=== PATIENT | female | born 1965 | race African-American/Black ===

== ENCOUNTER 2018-03-29 00:20 | Emergency (ER) | payer OTHER ==
[2018-03-29 00:55] VITALS: BP 134/78
[2018-03-29] MEDS ORDERED: KETOROLAC TROMETHAMINE 60 MG/2 ML SDV IM ONE (01:13)
[2018-03-29] MEDS ORDERED: LIDOCAINE 5% (700 MG) TRANSDERMAL ADH..PATCH TP ONE (01:13)
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
== END 2018-03-29 01:51 | disposition home or self-care (01) ==
LOC: ER 00:20
DX: M54.5 Low back pain (principal); G89.29 Other chronic pain; E66.01 Morbid (severe) obesity due to excess calories; V47.6XXA Car passenger injured in collision with fixed or stationary object in traffic accident, initial encounter
CPT/HCPCS: 99283; 96372; J1885